=== PATIENT | female | born 1970 | race Hispanic/Latino ===

== ENCOUNTER 2020-11-24 11:09 | Outpatient (CLI) | payer SELFPAY ==
[2020-11-24 11:49] LABS: ALT (SGPT) 22 U/L (8-55); AST (SGOT) 26 U/L (5-34); Albumin 4.2 g/dL (3.5-5.0); Alkaline Phosphatase 120 U/L (40-110); Bilirubin, Direct 0.2 mg/dL (0.1-0.3); Bilirubin, Total 0.4 mg/dL (0.2-1.2); Protein, Total 7.7 g/dL (6.0-8.3)
[2020-11-25 15:48] LABS: HIV (1/2) Antibody/Antigen Non-Reactive (NonReactive); HIV 1/2 INDEX 0.09 S/CO (<1.00); Vitamin D, 25 Hydroxy 62.7 ng/ml (> 30.0)
[2020-12-03 05:38] LABS: Alkaline Phosphastase Total 133 IU/L (39-117); Bone 53 % (14-68); Intestinal 0 % (0-18); Liver 47 % (18-85)
== END 2020-11-24 11:10 | disposition home or self-care (01) ==
LOC: MADLABSP 11:09
PROVIDERS: ATTEND Family Medicine
DX: E55.9 Vitamin D deficiency, unspecified (principal); R74.8 Abnormal levels of other serum enzymes
CPT/HCPCS: 36415; 80076; 82306; 84075; 87389